=== PATIENT | male | born 1945 | race Caucasian/White ===

== ENCOUNTER 2023-09-09 10:53 | Inpatient (IN) | payer OTHER, MEDICARE ==
[2023-09-09] MEDS ORDERED: ACETAMINOPHEN INJECTION 100 ML IVPB ONE ×2 (12:21→21:59)
[2023-09-09] MEDS: ACETAMINOPHEN 1000 MG/100 ML BAG IVPB ONE (12:26)
[2023-09-09 12:31] LABS: BASO % 0.7 % (0-2.0); EOS % 1.2 % (0-4.5); HEMATOCRIT 35.4 % (35.4-49); HEMOGLOBIN 12.4 GM/dL (11.7-16.9); LYMPH % 11.4 % (8-40); MCH 32.8 pg (25.7-33.7); MCHC 35.1 g/dl (32.0-35.9); MEAN CELL VOLUME 93.5 fl (80-96); MEAN PLT VOLUME 6.6 fl (7.5-11.1); MONO % 5.9 % (3.8-10.2); NEUT % 80.8 % (42.8-82.8); PLATELET COUNT 160 10^3/uL (134-434); RBC 3.79 M/mm3 (4.00-5.60); RDW 14.1 % (11.9-15.9); WHITE BLOOD COUNT 10.3 K/mm3 (4.0-10.0)
[2023-09-09 12:48] LABS: POTASSIUM 4.7 mmol/L (3.5-5.1)
[2023-09-09 12:53] LABS: CALCIUM 9.2 mg/dL (8.5-10.1)
[2023-09-09 12:54] LABS: ALBUMIN 3.7 g/dl (3.4-5.0); BLOOD UREA NITROGEN 32.5 mg/dL (7-18)
[2023-09-09 12:57] LABS: CREATININE 2.3 mg/dL (0.55-1.3)
[2023-09-09 12:58] LABS: TOT PROT 7.3 g/dl (6.4-8.2)
[2023-09-09 12:59] LABS: BILIRUBIN,TOTAL 0.6 mg/dL (0.2-1)
[2023-09-09] MEDS ORDERED: morphine SULFATE 4 MG/ML VIAL ONE (14:22)
[2023-09-09] MEDS: morphine CARPU-JECT 4 MG/1 ML DISP.SYRIN IVPUSH ONE (14:37)
[2023-09-09] MEDS ORDERED: LIDOCAINE 4% PATCH TP ONE (17:09)
[2023-09-09] MEDS: LIDOCAINE 4% PATCH TP ONE (17:16)
[2023-09-09 18:09] LABS: EPI CELLS 3 /uL (0-25.1); HYALINE CASTS 0 /uL (0-3.1); URINE APPEARANCE CLEAR; URINE BACTERIA 4 /uL (0-1359); URINE BILIRUBIN NEGATIVE (NEGATIVE); URINE COLOR YELLOW; URINE GLUCOSE (UA) NEGATIVE (NEGATIVE); URINE KETONE NEGATIVE (NEGATIVE); URINE LEUK ESTERASE NEGATIVE (NEGATIVE); URINE NITRITE NEGATIVE (NEGATIVE); URINE PROTEIN 2+ (NEGATIVE); URINE RBC 17 /uL (0-23.9); URINE UROBILINOGEN 0.2 mg/dL (0.2-1.0); URINE WBC 1 /uL (0-25.8)
[2023-09-09] MEDS ORDERED: ONDANSETRON 4 MG/2 ML VIAL IVPUSH PRN (18:10)
[2023-09-09] MEDS: SODIUM CHLORIDE 1,000 ML IV SCH (18:40)
[2023-09-09] MEDS ORDERED: MELATONIN 5 MG TABLETS ONE (21:58)
[2023-09-09] MEDS ORDERED: GABAPENTIN 100 MG CAPSULE ONE (21:58)
[2023-09-09] MEDS ORDERED: CARVEDILOL 3.125 MG TABLET (FP) ONE (21:58)
[2023-09-09] MEDS ORDERED: ATORVASTATIN CA 40 MG TABLET (FP) ONE (21:58)
[2023-09-09] MEDS ORDERED: HEPARIN NA (PORCINE) 5,000 UNITS/ML 1ML VIAL ONE (21:59)
[2023-09-09] MEDS: CARVEDILOL 3.125 MG TABLET (FP) PO SCH (22:19)
[2023-09-09] MEDS: ACETAMINOPHEN 1000 MG/100 ML BAG IVPB PRN (22:20)
[2023-09-09] MEDS: AMANTADINE HCL 100 MG TABLET PO SCH (22:20)
[2023-09-09] MEDS: HEPARIN NA (PORCINE) 5,000 UNITS/ML 1ML VIAL SQ SCH (22:20)
[2023-09-09] MEDS: GABAPENTIN 100 MG CAPSULE PO SCH (22:20)
[2023-09-09] MEDS: MELATONIN 5 MG TABLETS PO PRN (22:20)
[2023-09-09] MEDS: ATORVASTATIN CA 40 MG TABLET (FP) PO SCH (22:20)
[2023-09-10 00:35] VITALS: BMI 23.0
[2023-09-10] MEDS: HYDROmorphone HCL 2 MG TABLET PO ONE (04:07)
[2023-09-10] MEDS: LIDOCAINE PATCH REMOVAL MC SCH ×2 (05:34→21:38)
[2023-09-10 08:38] LABS: HEMATOCRIT 35.1 % (35.4-49); HEMOGLOBIN 12.1 GM/dL (11.7-16.9); MCH 32.3 pg (25.7-33.7); MCHC 34.6 g/dl (32.0-35.9); MEAN CELL VOLUME 93.5 fl (80-96); MEAN PLT VOLUME 6.4 fl (7.5-11.1); PLATELET COUNT 159 10^3/uL (134-434); RBC 3.75 M/mm3 (4.00-5.60); RDW 14.1 % (11.9-15.9); WHITE BLOOD COUNT 10.4 K/mm3 (4.0-10.0)
[2023-09-10 09:32] LABS: POTASSIUM 4.6 mmol/L (3.5-5.1)
[2023-09-10 09:37] LABS: CALCIUM 9.2 mg/dL (8.5-10.1)
[2023-09-10 09:38] LABS: ALBUMIN 3.6 g/dl (3.4-5.0); BLOOD UREA NITROGEN 30.1 mg/dL (7-18); MAGNESIUM 2.2 mg/dL (1.8-2.4)
[2023-09-10 09:41] LABS: CREATININE 2.1 mg/dL (0.55-1.3); PHOSPHOROUS 3.7 mg/dL (2.5-4.9)
[2023-09-10 09:42] LABS: BILIRUBIN,TOTAL 0.8 mg/dL (0.2-1); TOT PROT 6.8 g/dl (6.4-8.2)
[2023-09-10] MEDS: LIDOCAINE 5% TOPICAL PATCH TP SCH (10:05)
[2023-09-10] MEDS: LIDOCAINE 4% PATCH TP SCH (10:07)
[2023-09-10] MEDS: SERTRALINE HCL 50 MG TABLET (FP) PO SCH (10:07)
[2023-09-10] MEDS: LACTATED RINGERS SOLUTION 1,000 ML/1,000 ML INFUS.BAG IV SCH (14:31)
[2023-09-10] MEDS: LIDOCAINE PATCH REMOVAL MC ONE (15:51)
[2023-09-10] MEDS: ONDANSETRON 4 MG/2 ML VIAL IVPUSH PRN (21:34)
[2023-09-11 09:23] LABS: BASO % 0.8 % (0-2.0); EOS % 2.8 % (0-4.5); HEMATOCRIT 33.2 % (35.4-49); HEMOGLOBIN 11.8 GM/dL (11.7-16.9); LYMPH % 20.9 % (8-40); MCH 32.6 pg (25.7-33.7); MCHC 35.4 g/dl (32.0-35.9); MEAN CELL VOLUME 92.1 fl (80-96); MEAN PLT VOLUME 6.8 fl (7.5-11.1); NEUT % 67.5 % (42.8-82.8); PLATELET COUNT 156 10^3/uL (134-434); RDW 13.9 % (11.9-15.9); WHITE BLOOD COUNT 8.1 K/mm3 (4.0-10.0)
[2023-09-11 09:35] LABS: POTASSIUM 4.3 mmol/L (3.5-5.1)
[2023-09-11 09:41] LABS: CALCIUM 9.1 mg/dL (8.5-10.1)
[2023-09-11 09:42] LABS: ALBUMIN 3.5 g/dl (3.4-5.0); BLOOD UREA NITROGEN 28.7 mg/dL (7-18)
[2023-09-11 09:45] LABS: CREATININE 2.1 mg/dL (0.55-1.3); TOT PROT 6.6 g/dl (6.4-8.2)
[2023-09-11] MEDS: ASPIRIN 81 MG CHEWABLE TABLETS PO SCH (11:09)
[2023-09-11] MEDS: ACETAMINOPHEN 1000 MG/100 ML BAG IVPB PRN (11:18)
[2023-09-11] MEDS: POLYETHYLENE GLYCOL (HEALTHYLAX) 3350 17 GM PACKET PO SCH (12:52)
[2023-09-11] MEDS: SODIUM CHLORIDE 0.45% 1,000 ML IV SCH (16:37)
[2023-09-11] MEDS: SENNOSIDES 8.6MG TABLET (FP) PO SCH (21:31)
[2023-09-12 08:06] LABS: BASO % 0.7 % (0-2.0); EOS % 3.4 % (0-4.5); HEMATOCRIT 32.9 % (35.4-49); HEMOGLOBIN 11.6 GM/dL (11.7-16.9); LYMPH % 21.9 % (8-40); MCH 32.7 pg (25.7-33.7); MCHC 35.2 g/dl (32.0-35.9); MEAN CELL VOLUME 93.1 fl (80-96); MEAN PLT VOLUME 6.8 fl (7.5-11.1); MONO % 8.3 % (3.8-10.2); NEUT % 65.7 % (42.8-82.8); PLATELET COUNT 145 10^3/uL (134-434); RBC 3.53 M/mm3 (4.00-5.60); RDW 14.2 % (11.9-15.9); WHITE BLOOD COUNT 7.3 K/mm3 (4.0-10.0)
[2023-09-12 08:20] LABS: BLOOD UREA NITROGEN 32.6 mg/dL (7-18); CALCIUM 8.9 mg/dL (8.5-10.1)
[2023-09-12 08:21] LABS: ALBUMIN 3.3 g/dl (3.4-5.0)
[2023-09-12 08:25] LABS: BILIRUBIN,TOTAL 0.8 mg/dL (0.2-1); TOT PROT 6.4 g/dl (6.4-8.2)
[2023-09-12] MEDS: ACETAMINOPHEN 1000 MG/100 ML BAG IVPB PRN (09:41)
[2023-09-12] MEDS: LACTATED RINGERS SOLUTION 1,000 ML/1,000 ML INFUS.BAG IV SCH (09:47)
[2023-09-12] MEDS: DOCUSATE SODIUM 100 MG CAPSULE (FP) PO SCH (21:10)
[2023-09-13] MEDS: METOCLOPRAMIDE HCL INJECTION 10 MG/2 ML VIAL IVPUSH PRN (05:01)
[2023-09-13 09:00] LABS: BASO % 0.6 % (0-2.0); EOS % 3.2 % (0-4.5); HEMATOCRIT 34.9 % (35.4-49); HEMOGLOBIN 12.1 GM/dL (11.7-16.9); LYMPH % 20.5 % (8-40); MCH 32.2 pg (25.7-33.7); MCHC 34.7 g/dl (32.0-35.9); MEAN CELL VOLUME 92.7 fl (80-96); MEAN PLT VOLUME 6.9 fl (7.5-11.1); NEUT % 67.7 % (42.8-82.8); PLATELET COUNT 162 10^3/uL (134-434); RBC 3.76 M/mm3 (4.00-5.60); RDW 13.8 % (11.9-15.9)
[2023-09-13 09:24] LABS: ALBUMIN 3.4 g/dl (3.4-5.0); BLOOD UREA NITROGEN 29.2 mg/dL (7-18); CALCIUM 9.3 mg/dL (8.5-10.1)
[2023-09-13 09:27] LABS: CREATININE 1.9 mg/dL (0.55-1.3)
[2023-09-13 09:28] LABS: BILIRUBIN,TOTAL 0.6 mg/dL (0.2-1); TOT PROT 6.6 g/dl (6.4-8.2)
[2023-09-13] MEDS ORDERED: METOCLOPRAMIDE HCL INJECTION 10 MG/2 ML VIAL IVPUSH SCH (11:00)
[2023-09-13] MEDS: ONDANSETRON 4 MG TABLET PO SCH (11:35)
[2023-09-13] MEDS: traMADol HCL 50 MG TABLET PO PRN (11:36)
[2023-09-13] MEDS: MECLIZINE HCL 12.5 MG TABLET PO SCH (11:36)
[2023-09-13] MEDS: METHYL SALICYLATE/MENTHOL OINT 30 GM TUBE TP SCH (11:36)
[2023-09-13] MEDS: LIDOCAINE 4% PATCH TP SCH (11:54)
[2023-09-13] MEDS: ACETAMINOPHEN 500 MG TABLET (FP) PO SCH (15:42)
[2023-09-13 18:42] VITALS: RESP 18
[2023-09-13] MEDS: LIDOCAINE PATCH REMOVAL MC SCH (21:21)
[2023-09-14 07:28] VITALS: PULSE 66
[2023-09-14 09:06] LABS: EOS % 3.5 % (0-4.5); HEMATOCRIT 34.3 % (35.4-49); HEMOGLOBIN 11.8 GM/dL (11.7-16.9); LYMPH % 20.5 % (8-40); MCHC 34.3 g/dl (32.0-35.9); MEAN CELL VOLUME 93.3 fl (80-96); MEAN PLT VOLUME 6.8 fl (7.5-11.1); MONO % 8.6 % (3.8-10.2); NEUT % 66.4 % (42.8-82.8); PLATELET COUNT 172 10^3/uL (134-434); RBC 3.67 M/mm3 (4.00-5.60); RDW 13.8 % (11.9-15.9); WHITE BLOOD COUNT 8.1 K/mm3 (4.0-10.0)
[2023-09-14 09:26] LABS: BLOOD UREA NITROGEN 26.7 mg/dL (7-18)
[2023-09-14 09:30] LABS: PHOSPHOROUS 3.2 mg/dL (2.5-4.9)
[2023-09-14 11:55] VITALS: BP 142/81; TEMP 98.6
== END 2023-09-14 09:08 | DRG 57 ==
LOC: JER 10:53 → INTOOBSV 16:37 → UNDOADMOB 16:37 → JERBED 16:37 → J5S 09-10 00:17 → OBSVTOIN 09-10 07:24
PROVIDERS: ADMIT Internal Medicine; ATTEND Internal Medicine
DX: I69.30 Unspecified sequelae of cerebral infarction (principal); R29.6 Repeated falls; N17.9 Acute kidney failure, unspecified; I44.0 Atrioventricular block, first degree; R13.19 Other dysphagia; I12.9 Hypertensive chronic kidney disease with stage 1 through stage 4 chronic kidney disease, or unspecified chronic kidney disease; N18.2 Chronic kidney disease, stage 2 (mild); R11.2 Nausea with vomiting, unspecified; M79.602 Pain in left arm; M25.522 Pain in left elbow
CPT/HCPCS: 0241U-QW; 36415; 70450-TC; 71045-TC-FY; 72125-TC; 73030-TC-LT-FY; 73060-TC-LT-FY; 73070-TC-LT-FY; 73090-TC-LT-FY; 74230-TC-FY; 76775-TC; 80048; 80053; 81003; 83735; 84100; 84439; 84443; 84481; 85025; 85027; 87086; 92611-GN; 93005; 93010; 97116-GP; 97161-GP; 99285-25; G0378; J0131; J1644